=== PATIENT | male | born 1960 | race Two or more races ===

== ENCOUNTER 2023-07-06 23:20 | Emergency (ER) | payer OTHER ==
[~2023-07-06] VITALS: Ht 172.7 cm; Wt 72.7 kg
[2023-07-06 23:27] VITALS: BP 115/61; PULSE 105; RESP 17; TEMP 98.4
[2023-07-06] MEDS ORDERED: METF-1211 PO (23:41)
[2023-07-06] MEDS ORDERED: FOLI0.4T6 PO (23:41)
[2023-07-06] MEDS ORDERED: SITA25 PO (23:41)
[2023-07-06] MEDS ORDERED: PRED1 PO (23:41)
[2023-07-06] MEDS ORDERED: OMEP10 PO (23:41)
[2023-07-06] MEDS ORDERED: CALC-1038 PO (23:41)
[2023-07-06] MEDS ORDERED: MELO-107 PO (23:41)
[2023-07-06] MEDS ORDERED: ATOR20TA PO (23:41)
[2023-07-07] MEDS: LIDOCAINE 1% 10 ML VIAL SQ ONE (03:07)
[2023-07-07] MEDS ORDERED: CEPH-558 PO (03:25)
[2023-07-07] MEDS ORDERED: DOXY-354 PO (03:26)
[2023-07-07] MEDS: DOXYCYCLINE HYCLATE 100 MG TABLET PO ONE (03:40)
[2023-07-07] MEDS: CEPHALEXIN MONOHYDRATE 500 MG CAPSULE PO ONE (03:40)
== END 2023-07-07 03:49 | disposition home or self-care (01) ==
LOC: EMS 23:24
DX: L08.9 Local infection of the skin and subcutaneous tissue, unspecified (principal); M19.90 Unspecified osteoarthritis, unspecified site; E11.9 Type 2 diabetes mellitus without complications; E78.00 Pure hypercholesterolemia, unspecified; I10 Essential (primary) hypertension; Z89.422 Acquired absence of other left toe(s); Z98.890 Other specified postprocedural states
CPT/HCPCS: 99284; 10160; J3490